=== PATIENT | female | born 1960 | race Caucasian/White ===

== ENCOUNTER 2019-04-29 10:47 | Day surgery (SDC) | payer BC ==
[2019-04-27 14:48] VITALS: BMI 34.7
[~2019-04-29 10:47] MED LIST: LACTATED RINGERS 1,000 ML IV SCH; LIDOCAINE 1% 20 ML VIAL (10MG/ML) FOR IV START INTRADERMA PRN
[2019-04-29 11:17] VITALS: TEMP 97.1
[2019-04-29] MEDS ORDERED: MIDAZOLAM 2 MG/2 ML VIAL ONE (11:26)
[2019-04-29] MEDS ORDERED: fentaNYL (PF) 50 MCG/ML 2 ML AMP ONE (11:26)
[2019-04-29] MEDS ORDERED: PROPOFOL 10 MG/ML 20 ML VIAL IV ONE (11:26)
--- NOTE | 2019-04-29 11:26 | P.GSHP ---
History of Present Illness H&P Date: 04/29/19 Chief Complaint: GERD, screening Patient here today for upper and lower endoscopy. Patient has had complaints of chronic reflux. Recently she has had some difficulty swallowing with increased burning. No bowel related complaints. Denies rectal bleeding or melena. No family history of colon cancer. Past Medical History Past Medical History: Cancer, GERD/Reflux, Hypertension Additional Past Medical History / Comment(s): increased burning/reflux,hiatal hernia,coughs freq at night,steroid Mar 2019,ovarian History of Any Multi-Drug Resistant Organisms: None Reported Past Surgical History: Section, Hysterectomy Additional Past Surgical History / Comment(s): complete hyst Past Anesthesia/Blood Transfusion Reactions: No Reported Reaction, Motion Sickness Additional Past Anesthesia/Blood Transfusion Reaction / Comment(s): vertigo Smoking Status: Never smoker - Past Family History Mother Family Medical History: Cancer Additional Family Medical History / Comment(s): breast Sister(s) Family Medical History: Cancer Additional Family Medical History / Comment(s): breast CA Father Family Medical History: Cancer Additional Family Medical History / Comment(s): lung Medications and Allergies Home Medications Medication Instructions Recorded Confirmed Type Acetaminophen [Tylenol Extra 1,000 mg PO QAM PRN 04/27/19 04/29/19 History Strength] Acetaminophen/Diphenhydramine 1 tab PO HS PRN 04/27/19 04/29/19 History [Tylenol PM 500-25mg] Atorvastatin [Lipitor] 40 mg PO DAILY 04/27/19 04/29/19 History Cholecalciferol (Vitamin D3) 5,000 unit PO Q2D 04/27/19 04/29/19 History [Vitamin D3] Escitalopram [Lexapro] 20 mg PO QAM 04/27/19 04/29/19 History Ibuprofen 600 mg PO BID PRN 04/27/19 04/29/19 History Omeprazole 40 mg PO DAILY 04/27/19 04/29/19 History Triamterene-Hctz 37.5-25Mg 1 cap PO DAILY 04/27/19 04/29/19 History [Dyazide 37.5-25 Capsule] Allergies Allergy/AdvReac Type Severity Reaction Status Date / Time No Known Allergies Allergy Verified 04/29/19 11:16 Surgical - Exam Vital Signs Temp Pulse Resp BP Pulse Ox 97.1 F L 111 H 16 128/86 95 01/17/20 11:10 04/29/19 11:10 04/29/19 11:10 04/29/19 11:10 04/29/19 11:10 Physical exam: General: Well-developed, well-nourished HEENT: Normocephalic, sclerae nonicteric Abdomen: Nontender, nondistended Extremities: No edema Neuro: Alert and oriented Assessment and Plan (1) Colon cancer screening Narrative/Plan: Will proceed with upper and lower endoscopy. Current Visit: Yes Status: Acute Code(s): Z12.11 - ENCOUNTER FOR SCREENING FOR MALIGNANT NEOPLASM OF COLON SNOMED Code(s): 452377989
--- NOTE | 2019-04-29 12:00 | P.PCN ---
Date of Procedure: 04/29/19 Procedure(s) Performed: PREOPERATIVE DIAGNOSIS: GERD, screening POSTOPERATIVE DIAGNOSIS: Gastritis, gastric polyps, small hiatal hernia, hepatic flexure polyp PROCEDURE: 1. EGD with biopsy 2. Colonoscopy with snare polypectomy ANESTHESIA: MAC SURGEON: Tyree Ayala M.D. SPECIMENS: Antrum, gastric polyp, polyp ENDOSCOPIC PROCEDURE: The patient was on the endoscopy table in the left decubitus position. The Olympus gastroscope was inserted into the oropharynx and passed under direct visualization to the region of the third portion of the duodenum. From that point the scope was slowly withdrawn inspecting all surfaces carefully. There were no neoplastic inflammatory or polypoid lesions throughout the duodenum. The pylorus was widely patent. The stomach was carefully inspected. There was gastritis present. A biopsy of the antrum took place. Multiple small gastric polyps were seen one of which was removed. Retroflexion revealed a small sliding hiatal hernia. The GE junction was present only about 1 cm above the diaphragmatic hiatus. The esophagus was examined and appeared normal. The patient was kept on the endoscopy table in the left decubitus position. The Olympus colonoscope was inserted into the anus and passed under direct visualization to the base of the cecum. The appendiceal orifice was visualized. From that point the scope was slowly withdrawn inspecting all surfaces carefully. There were no neoplastic inflammatory or polypoid lesions throughout the cecum or ascending colon. At the hepatic flexure a small polyp was identified and removed using the snare with cautery technique. The remainder of the transverse descending sigmoid and rectum appeared normal. There was no visible diverticulosis. Digital rectal examination was normal. The patient was taken to the recovery room in stable condition per anesthesia guidelines. RECOMMENDATIONS: Await biopsy results. Continue antiacid therapy.
[2019-04-29 12:08] VITALS: PULSE 83; RESP 17
[2019-04-29 12:18] VITALS: BP 135/87
== END 2019-04-29 12:43 | disposition home or self-care (01) ==
LOC: ORWHC2ENDO 10:47
PROVIDERS: ATTEND Surgery
DX: Z12.11 Encounter for screening for malignant neoplasm of colon (principal); K21.9 Gastro-esophageal reflux disease without esophagitis; K44.9 Diaphragmatic hernia without obstruction or gangrene; K63.5 Polyp of colon; K31.7 Polyp of stomach and duodenum; I10 Essential (primary) hypertension; E66.9 Obesity, unspecified; Z90.710 Acquired absence of both cervix and uterus; Z98.891 History of uterine scar from previous surgery; Z80.3 Family history of malignant neoplasm of breast; Z79.899 Other long term (current) drug therapy; Z68.34 Body mass index [BMI] 34.0-34.9, adult; Z85.43 Personal history of malignant neoplasm of ovary; Z98.890 Other specified postprocedural states; K29.50 Unspecified chronic gastritis without bleeding
CPT/HCPCS: 88305; 45385; 43239; J2250; J3010; J2704

== ENCOUNTER → 2019-11-24 | Outpatient (CLI) | payer BC | END | disposition home or self-care (01) | LOC: LABWHC1 10:39 | PROVIDERS: ATTEND Internal Medicine Hematology & Oncology | DX: D64.9 Anemia, unspecified (principal); R05 Cough; C56.9 Malignant neoplasm of unspecified ovary; R53.82 Chronic fatigue, unspecified | CPT/HCPCS: U0003; C9803 ==

== ENCOUNTER → 2020-03-06 | Outpatient (CLI) | payer BC | END | disposition home or self-care (01) | LOC: LABWHC1 15:58 | PROVIDERS: ATTEND Internal Medicine Hematology & Oncology | DX: Z20.828 Contact with and (suspected) exposure to other viral communicable diseases (principal) | CPT/HCPCS: U0003; C9803 ==